=== PATIENT | male | born 1960 | race Caucasian/White ===

== ENCOUNTER 2017-02-15 09:16 | Emergency (ER) | payer SELFPAY ==
[~2017-02-15] VITALS: Ht 177.8 cm; Wt 78.0 kg
[~2017-02-15 09:16] MED LIST: ASPI-516 CHEW; AUGM500T7 PO; CARD120T4 PO; FURO1TAB62 PO; HYDR-3535 PO; METO50TA PO; NIFE1TAB86 PO; PRIN20TA2 PO
[2017-02-15 09:20] VITALS: BP 173/88; PULSE 83; RESP 20; TEMP 97.6; O2SAT 95
[2017-02-15] MEDS ORDERED: HYDR-3583 PO (09:33)
--- NOTE | 2017-02-15 09:49 | PD ---
HPI Chief Complaint: Headache Time Seen by Provider: 09:43 Travel History International Travel<30 days: No Contact w/Intl Traveler<30days: No Traveled to known affect area: No History of Present Illness HPI 56-year-old male patient with history of A. fib, hypertension, presents to the ER today for 2 days history of cough, cold symptoms, body aches, fevers and chills, and states that his A. fib has worsened, he is having intermittent palpitations. He denies any diarrhea, abdominal pains, chest pains, shortness of breath, or other symptoms. He does not know any sick contacts. Modifying Factors: None Associated Signs & Symptoms: Palpitations, cough, cold symptoms, body aches, fevers and chills Risk Factors: History of A. fib PFSH Past Medical History Arthritis: Yes Asthma: No Atrial Fibrillation: Yes Autoimmune Disease: No Blood Disorders: No Anxiety: No Depression: No Heart Rhythm Problems: Yes Cancer: Yes (SKIN) Cardiovascular Problems: Yes (A FIB) High Cholesterol: No Chemotherapy: No Chest Pain: No Congestive Heart Failure: No COPD: No Cerebrovascular Accident: No Diabetes: No Diminished Hearing: No Endocrine: No Gastrointestinal Disorders: No GERD: No Genitourinary: No Headaches: No Hiatal Hernia: No Hypertension: Yes Immune Disorder: No Implanted Vascular Access Dvce: Yes Kidney Stones: No Musculoskeletal: Yes (BACK) Neurologic: Yes (PAIN MANAGEMENT IN THE PAST FOR BACK PROBLEMS) Psychiatric: No Reproductive: No Immunizations Current: Yes Migraines: No Radiation Therapy: No Renal Failure: No Seizures: No Sickle Cell Disease: No Sleep Apnea: No Thyroid Disease: No Ulcer: No Tetanus Vaccination: < 5 Years Influenza Vaccination: No Past Surgical History Abdominal Surgery: Yes (UMBILICAL HERNIA) AICD: No Arteriovenous Shunt: No Body Medical Devices: PINS ON LEFT ANKLE AND LEFT & RIGHT HAND. Cardiac Surgery: No Ear Surgery: No Endocrine Surgery: No Eye Surgery: No Genitourinary Surgery: No Gynecologic Surgery: No Insulin Pump: No Joint Replacement: No Oral Surgery: No Pacemaker: No Thoracic Surgery: No Other Surgery: Yes (LEFT LEG AND ANKLE SURGERY) Social History Alcohol Use: Yes (rarely) Tobacco Use: Yes (1 PPD) Substance Use: No Allergies-Medications (Allergen,Severity, Reaction): Coded Allergies: *MDRO Multi-Drug Resistant Organism (Verified Adverse Reaction, Unknown, 02/15/17) MRSA (leg and arm wound) - 2003 MRSA PCR screen negative 02/26/15 & 05/08/15. Per Infection Control, patient does not require isolation for history of MRSA prior to 05/08/15. Reported Meds & Prescriptions Reported Meds & Active Scripts Active Reported Hydrocodone-Acetaminophen 10-325 mg Tab 1 Tab PO Q4H PRN Prinivil (Lisinopril) 20 Mg Tab 20 Mg PO DAILY Lasix (Furosemide) 20 Mg Tab 20 Mg PO DAILY Aspirin 81 Mg Chew 81 Mg CHEW DAILY Metoprolol Tartrate 50 Mg Tab 50 Mg PO BID Review of Systems Except as stated in HPI: all other systems reviewed are Neg Physical Exam Narrative GENERAL: Well-developed middle age male patient currently in mild distress. Awake and oriented 3. SKIN: Focused skin assessment warm/dry. HEAD: Atraumatic. Normocephalic. EYES: Pupils equal and round. No scleral icterus. No injection or drainage. ENT: No nasal bleeding or discharge. Mucous membranes pink and moist. NECK: Trachea midline. No JVD. CARDIOVASCULAR: Regular rate and rhythm. No murmur appreciated. RESPIRATORY: No accessory muscle use. Clear to auscultation. Breath sounds equal bilaterally. GASTROINTESTINAL: Abdomen soft, non-tender, nondistended. Hepatic and splenic margins not palpable. MUSCULOSKELETAL: No obvious deformities. No clubbing. No cyanosis. No edema. NEUROLOGICAL: Awake and alert. No obvious cranial nerve deficits. Motor grossly within normal limits. Normal speech. PSYCHIATRIC: Appropriate mood and affect; insight and judgment normal. Data Data Last Documented VS Vital Signs Date Time Temp Pulse Resp B/P (MAP) Pulse Ox O2 Delivery O2 Flow Rate FiO2 02/15/17 10:37 81 17 152/78 (102) 93 Room Air 02/15/17 09:20 97.6 Orders Orders Complete Blood Count With Diff (02/15/17 09:43) Comprehensive Metabolic Panel (02/15/17 09:43) Troponin I (02/15/17 09:43) Influenzae A/B Antigen (02/15/17 09:43) Chest, Single Ap (02/15/17 09:43) B-Type Natriuretic Peptide (02/15/17 10:06) Ibuprofen (Motrin) (02/15/17 10:30) Labs Laboratory Tests Test 02/15/17 09:53 White Blood Count 16.7 TH/MM3 Red Blood Count 5.16 MIL/MM3 Hemoglobin 15.2 GM/DL Hematocrit 45.6 % Mean Corpuscular Volume 88.3 FL Mean Corpuscular Hemoglobin 29.4 PG Mean Corpuscular Hemoglobin Concent 33.3 % Red Cell Distribution Width 13.7 % Platelet Count 182 TH/MM3 Mean Platelet Volume 8.1 FL Neutrophils (%) (Auto) 90.1 % Lymphocytes (%) (Auto) 4.2 % Monocytes (%) (Auto) 3.7 % Eosinophils (%) (Auto) 0.6 % Basophils (%) (Auto) 1.4 % Neutrophils # (Auto) 15.1 TH/MM3 Lymphocytes # (Auto) 0.7 TH/MM3 Monocytes # (Auto) 0.6 TH/MM3 Eosinophils # (Auto) 0.1 TH/MM3 Basophils # (Auto) 0.2 TH/MM3 CBC Comment DIFF FINAL Differential Comment B-Type Natriuretic Peptide 62 PG/ML MDM Medical Decision Making Medical Screen Exam Complete: Yes Emergency Medical Condition: Yes Medical Record Reviewed: Yes Interpretation(s) EKG shows normal sinus rhythm at a rate of 79 bpm with occasional PAC. No signs of acute ST-T changes. Last 24 hours Impressions Chest X-Ray 02/15/17 0943 Signed Impressions: Service Date/Time: Wednesday, February 15, 2017 09:48 - CONCLUSION: Mild congestive failure.. Martinez Márquez MD FACR Differential Diagnosis Palpitations, cough, cold symptoms, body aches, fevers and chills: Viral URI versus influenza versus dehydration versus bronchitis versus metabolic issues Narrative Course Influenza test is negative. Chest x-ray shows some interstitial pneumonitis, questionable pulmonary edema versus viral pneumonitis versus bronchitis. BNP is unremarkable. He does have an elevated white blood cell counts. At this point, he appears to be doing well and vital signs are stable. However, I do not have his metabolic panel back yet and the patient is requesting to go home due to the holidays. I have talked to the patient regarding the fact that we do not know his electrolyte status or other information contained in the metabolic panel and this could affect his care. He states understanding but does not want to stay. He states he will follow-up with his physician regarding this issue. He should return for any worsening in symptoms. My plan would be to treat him for bronchitis. The plan was discussed with him and the risk of possible lab work abnormalities that could affect his health has been discussed with him and he states understanding. He still does not want to stay to get the rest of lab work. Diagnosis Primary Impression: Bronchitis Med/Other Pt SpecificInfo: Prescription(s) given Scripts Albuterol 6.7 GM Inh (Proventil Hfa 6.7 GM Inh) 90 Mcg/Act Aer 2 PUFF INH Q6H Y for SHORTNESS OF BREATH, #1 INHALER 0 Refills Prov: Aleksandr Mann MD 02/15/17 Ibuprofen (Ibuprofen) 600 Mg Tab 600 MG PO Q6H Y for Pain/Inflammation, #20 TAB 0 Refills Prov: Aleksandr Mann MD 02/15/17 Azithromycin (Zithromax Z-[place]) 250 Mg Dspk 250 MG PO DIRECTED for Infection, #1 DSPK 0 Refills 500 MG (2 tabs) day 1, then 1 tab days 2-5. Prov: Aleksandr Mann MD 02/15/17 Disposition: 01 DISCHARGE HOME Condition: Stable Aleksandr Mann MD Feb 15, 2017 09:49
[2017-02-15 10:02] LABS: AUTOMATED NEUTROPHIL # 15.1 TH/MM3 (1.8-7.7); BASOPHIL # 0.2 TH/MM3 (0-0.2); BASOPHIL % 1.4 % (0.0-2.0); EOSINOPHIL # 0.1 TH/MM3 (0-0.4); EOSINOPHIL % 0.6 % (0.0-4.0); HEMATOCRIT 45.6 % (39.0-51.0); HEMOGLOBIN 15.2 GM/DL (13.0-17.0); LYMPH % 4.2 % (9.0-44.0); LYMPHOCYTE # 0.7 TH/MM3 (1.0-4.8); MEAN CELL VOLUME 88.3 FL (80.0-100.0); MEAN CORPUSCULAR HEMOGLOBIN 29.4 PG (27.0-34.0); MEAN CORPUSCULAR HGB CONC 33.3 % (32.0-36.0); MEAN PLATELET VOLUME 8.1 FL (7.0-11.0); MONO % 3.7 % (0.0-8.0); MONOCYTE # 0.6 TH/MM3 (0-0.9); NEUT % 90.1 % (16.0-70.0); PLATELET COUNT 182 TH/MM3 (150-450); RED BLOOD COUNT 5.16 MIL/MM3 (4.50-5.90); RED CELL DISTRIBUTION WIDTH 13.7 % (11.6-17.2); WHITE BLOOD COUNT 16.7 TH/MM3 (4.0-11.0)
--- NOTE | 2017-02-15 10:05 | RADRPT ---
EXAM DATE/TIME: 02/15/2017 09:48 [facility] COMPARISON: CHEST SINGLE AP, January 01, 2016, 0:24. INDICATIONS : Short of breath. Tachycardia. MEDICAL HISTORY : Hypertension. A-fib. SURGICAL HISTORY : None. ENCOUNTER: Initial ACUITY: 2 days PAIN SCORE: 0/10 LOCATION: Bilateral chest FINDINGS: Mild interstitial edema without effusion or consolidation. The heart is minimally enlarged. The portion of the bony skeleton visualized is unremarkable. CONCLUSION: Mild congestive failure.. Martinez Márquez MD FACR on February 15, 2017 at 10:02 Board Certified Radiologist. This report was verified electronically.
[2017-02-15] MEDS ORDERED: IBUPROFEN 600 MG TAB PO ONE (10:30)
[2017-02-15 10:37] VITALS: BP 152/78; PULSE 81; RESP 17; O2SAT 93
[2017-02-15 11:03] LABS: CHLORIDE 102 MEQ/L (98-107); SODIUM (NA) 135 MEQ/L (136-145)
[2017-02-15] MEDS ORDERED: ALBU6.7H INH (11:04)
[2017-02-15] MEDS ORDERED: ZITHTAB PO (11:04)
[2017-02-15] MEDS ORDERED: IBUP-232 PO (11:04)
[2017-02-15 11:06] LABS: CALCIUM 8.4 MG/DL (8.5-10.1)
[2017-02-15 11:07] LABS: ALBUMIN 3.1 GM/DL (3.4-5.0); BICARBONATE 24.5 MEQ/L (21.0-32.0); BLOOD UREA NITROGEN 24 MG/DL (7-18); GLUCOSE,RANDOM 113 MG/DL (74-106)
[2017-02-15 11:10] LABS: ALT (GPT) 19 U/L (12-78); AST (GOT) 22 U/L (15-37); CREATININE 0.98 MG/DL (0.60-1.30); GLOMERULAR FILTRATION RATE 79 ML/MIN (>89)
[2017-02-15 11:11] LABS: TOTAL BILIRUBIN ADULT 0.5 MG/DL (0.2-1.0)
[2017-02-15 11:12] LABS: TOTAL PROTEIN 7.4 GM/DL (6.4-8.2)
[2017-02-15 11:13] LABS: ALKALINE PHOSPHATASE 101 U/L (45-117); TROPONIN I LESS THAN 0.02 NG/ML (0.02-0.05)
--- NOTE | 2017-02-16 17:22 | EKG ---
Date Performed: 02/15/2017 Time Performed: 09:29:55 PTAGE: 56 years EKG: Sinus rhythm WITH SINUS ARRHYTHMIA Since previous tracing, no significant change noted NORMAL ECG PREVIOUS TRACING : 12/29/2015 11.23 DOCTOR: Vita Wren Interpretating Date/Time 02/16/2017 17:20:33
== END 2017-02-15 11:13 | disposition home or self-care (01) ==
LOC: PHED 09:16
DX: J40 Bronchitis, not specified as acute or chronic (principal); I10 Essential (primary) hypertension; I48.91 Unspecified atrial fibrillation
CPT/HCPCS: 71010; 80053; 83880; 84484; 85025; 87804; 93005; 99285

== ENCOUNTER 2017-07-03 19:53 | Observation (INO) | END 2017-07-06 12:51 | disposition home or self-care (01) | DX: L02.413 Cutaneous abscess of right upper limb (principal); L03.113 Cellulitis of right upper limb; I10 Essential (primary) hypertension; I48.91 Unspecified atrial fibrillation; I25.2 Old myocardial infarction; M54.9 Dorsalgia, unspecified; G89.29 Other chronic pain; M19.90 Unspecified osteoarthritis, unspecified site; F17.210 Nicotine dependence, cigarettes, uncomplicated; F12.90 Cannabis use, unspecified, uncomplicated; Z79.899 Other long term (current) drug therapy; Z79.82 Long term (current) use of aspirin; Z95.5 Presence of coronary angioplasty implant and graft; Z85.828 Personal history of other malignant neoplasm of skin; Z82.49 Family history of ischemic heart disease and other diseases of the circulatory system; Z86.14 Personal history of Methicillin resistant Staphylococcus aureus infection | CPT/HCPCS: 01710; 11043; 76882; 80053; 80202; 80307; 81001; 85025; 85610; 85730; 87015; 87040; 87070; 87102; 87116; 87176; 87205; 87206; 94150; 96361; 96365; 96366; 96375; 96376; 97161; 97166; 99285; G0378; G8987; G8988; G8989; J0131; J0692; J1100; J1170; J1580; J2250; J2270; J2405; J3010; J3370; J7030; J7040; J7050 ==

== ENCOUNTER 2017-09-18 03:19 | Observation (INO) ==
--- NOTE | 2017-09-18 03:37 | ED ---
HPI General Chief Complaint: Back Pain/Injury Stated Complaint: Backpain Time Seen by Provider: 09/18/17 03:24 History of Present Illness HPI Narrative: 56-year-old male presents to the emergency department by EMS transport for severe intractable back pain radiating to the right buttock region. 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 Patient has significant past medical history regarding back injury and back pain. Patient required hospitalization 2 years ago for intractable back pain which time he was identified to have a focal lumbar epidural abscess that was treated medically without procedural intervention. Patient was also identified during that hospitalization to have new onset atrial fibrillation and was respiratory failure. Patient has been seen for this pain as recently as yesterday in the emergency department at which time he was transported to the emergency department by EMS for severe pain. Patient was treated with morphine sulfate 4 mg Zofran 4 mg by mouth 30 mg of Toradol he continued to have pain and received dexamethasone 8 mg IV Norflex 60 mg IM and oral [place] 5/ 325. Patient was also queried on E force and had not had any prescriptions for pain management since December 2016 at which time he was prescribed Suboxone. Patient was discharged from the emergency department with lumbar strain diagnosis and prescription for Flexeril [place] 5/325 and prednisone. Patient reports that he has not been able to ambulate or get out of bed due to the severity of his pain which is greater than 10/10 in intensity. Paramedics reported they administered 10 mg of morphine sulfate in route to the hospital. Patient was transported on stretcher in position of comfort which was left lateral decubitus position. Patient does not report any bladder or bowel dysfunction or saddle anesthesia. Patient has severe pain with any type of attempted movement of the right lower extremity or change position from left lateral decubitus position. Patient was reportedly markedly hypertensive prior to administration of more patient does have history of hypertension and previous inguinal herniorrhaphy repair. Patient admits to tobacco use and occasional alcohol use. A CT of the lumbar spine was performed last evening which reported some mild disc bulge without significant effacement at L5-S1. Chronic L1 changes. Exacerbation of pain is any type of movement. Alleviation of pain nothing at this time only minimally affected by morphine sulfate administered IV prior to arrival to the emergency department reportedly. Related Data Home Medications Medication Instructions Recorded Confirmed lisinopril 20 mg PO DAILY 09/16/17 09/18/17 metoprolol tartrate 10 mg PO DAILY 09/16/17 09/18/17 Previous Rx's Medication Instructions Recorded cyclobenzaprine 10 mg PO TID PRN #21 tab 09/16/17 hydrocodone-acetaminophen [[place]] 1 tab PO Q6H PRN #12 tab 09/16/17 prednisone 40 mg PO DAILY 5 Days #10 tab 09/16/17 Allergies Allergy/AdvReac Type Severity Reaction Status Date / Time *MDRO Multi-Drug Resistant AdvReac Unknown Uncoded 07/03/17 19:55 Organism Review of Systems Except as stated in HPI: all other systems reviewed are negative [facility] Medical History Medical History Hypertension (Acute) Inguinal hernia (Acute) Surgical History Surgical History S/P hernia repair (Acute) Social History Social History Substance History: No History of Abuse Second Hand Smoke Exposure: No Smoking Status: Light tobacco smoker Tobacco Type: Cigarettes How Often Do You Have a Drink Containing Alcohol: 2 to 3 times a week Recent Travel in [facility] within the Last 8 Weeks: No Recent Out of Country Travel within the Last 8 Weeks: No Immunization History Tetanus Immunization: >5 Years Hx Influenza Vaccine This Season: No Exam Narrative Exam Narrative: GENERAL: Well-nourished, well-developed patient. Patient is in acute discomfort resting and left lateral decubitus position and moans and yells in pain with any type of movement; GCS is 15 SKIN: Focused skin assessment warm/dry. HEAD: Normocephalic. EYES: No scleral icterus. No injection or drainage. NECK: Supple, trachea midline. No JVD or lymphadenopathy. CARDIOVASCULAR: Regular rate and rhythm without murmurs, gallops, or rubs. RESPIRATORY: Breath sounds equal bilaterally. No accessory muscle use. GASTROINTESTINAL: Abdomen soft, non-tender, nondistended. MUSCULOSKELETAL: No cyanosis, or edema. BACK: Nontender without obvious deformity except reproducible tenderness to the lower lumbar spine referring to the right SI joint and buttock distally extremity is neurovascular tendon intact with dorsalis pedis pulse 2+ to palpation brisk capillary refill less than 2 seconds. No CVA tenderness. Course Initial Documented Vital Signs Temperature 98.9 F 09/18/17 03:21 Pulse Rate 87 09/18/17 03:21 Respiratory Rate 17 09/18/17 03:21 Blood Pressure 162/81 H 09/18/17 03:21 Pulse Oximetry 96 09/18/17 03:21 Last Documented Vital Signs Temperature 98.8 F 09/18/17 16:00 Pulse Rate 98 H 09/18/17 16:00 Respiratory Rate 18 09/18/17 17:10 Blood Pressure 200/90 H 09/18/17 16:00 Pulse Oximetry 98 09/18/17 16:00 Medical Decision Making MDM Narrative Medical decision making narrative: 56-year-old male presents to the emergency department by EMS complaining of intractable back pain. Pain is right-sided and radiates to the right SI joint and right hip. Patient states pain is so severe it is intolerable. Patient came to the emergency room via EMS and pain was still intolerable 10/10 intensity 9.5/10 intensity after 10 mg of IV morphine. Patient upon arrival placed in position of comfort to left lateral decubitus position patient does have reproducible low back pain and SI joint pain but does not have any motor weakness or sensory deficit and DTRs are 2+ without clonus dorsalis pedis pulses 2+ to palpation capillary refill is brisk and less than 2 seconds sphincter tone is intact. Patient given additional dose of pain medication Dilaudid 1 mg IV along with Reglan 10 mg IV and maintenance IV fluids patient was just seen in the emergency department yesterday 09/16/17 with extensive workup including blood work and imaging study which revealed no significant disc space impingement and has had no reinjury since original injury 3 days ago while lifting an anchor on his boat. At this point time patient will be reassessed from lab values standpoint and may need to proceed with lumbar MRI to further delineate ongoing etiology of pain. Patient also given dose of Toradol 30 mg IV. At 4:50 AM patient is standing at bedside urinating to provide urine specimen; patient reports this is position of comfort because lying down or lying in left lateral decubitus position or sitting exacerbates his pain. MR shows inflammatory cahnges L3 -S1 no abscess --ain remains uncontrolled --- discussed with Dr Conrad for intractable lumbar pain Medical Records Medical records reviewed: Yes I reviewed the patient's medical records. Lab Data Result diagrams: 09/18/17 04:47 09/18/17 04:47 Lab Results 09/18/17 09/18/17 09/18/17 Range/Units 04:47 04:47 04:47 WBC 17.3 H (4.0-11.0) th/mm3 RBC 4.33 L (4.50-5.90) mil/mm3 Hgb 13.7 (13.0-17.0) gm/dL Hct 40.1 (39.0-51.0) % MCV 92.6 (80.0-100.0) fL MCH 31.7 (27.0-34.0) pg MCHC 34.2 (32.0-36.0) % RDW 12.9 (11.6-17.2) % Plt Count 176 (150-450) th/mm3 MPV 8.5 (7.0-11.0) fL Neut % (Auto) 80.3 H (16.0-70.0) % Lymph % (Auto) 10.3 (9.0-44.0) % Cotton % (Auto) 8.4 H (0.0-8.0) % Eos % (Auto) 0.7 (0.0-4.0) % Baso % (Auto) 0.3 (0.0-2.0) % Neut # (Auto) 13.9 H (1.8-7.7) th/mm3 Lymph # (Auto) 1.8 (1.0-4.8) th/mm3 Cotton # (Auto) 1.4 H (0.0-0.9) th/mm3 Eos # (Auto) 0.1 (0.0-0.4) th/mm3 Baso # (Auto) 0.1 (0.0-0.2) th/mm3 WBC Differential . Differential Comment Auto diff final ESR 49 H (0-20) mm/hr PT (9.8-11.6) sec INR Ratio APTT (24.3-30.1) sec Sodium 138 (136-145) meq/L Potassium 4.0 (3.5-5.1) meq/L Chloride 103 (98-107) meq/L Carbon Dioxide 27.0 (21.0-32.0) meq/L Anion Gap 8 (5-15) meq/L BUN 36 H (7-18) mg/dL Creatinine 1.12 (0.60-1.30) mg/dL Estimated GFR 67 L (>89) mL/min Random Glucose 107 H (74-106) mg/dL Lactic Acid (0.4-2.0) mmol/L Calcium 8.2 L (8.5-10.1) mg/dL C-Reactive Protein (0.00-0.30) mg/dL 09/18/17 09/18/17 09/18/17 Range/Units 07:30 10:14 14:53 WBC (4.0-11.0) th/mm3 RBC (4.50-5.90) mil/mm3 Hgb (13.0-17.0) gm/dL Hct (39.0-51.0) % MCV (80.0-100.0) fL MCH (27.0-34.0) pg MCHC (32.0-36.0) % RDW (11.6-17.2) % Plt Count (150-450) th/mm3 MPV (7.0-11.0) fL Neut % (Auto) (16.0-70.0) % Lymph % (Auto) (9.0-44.0) % Cotton % (Auto) (0.0-8.0) % Eos % (Auto) (0.0-4.0) % Baso % (Auto) (0.0-2.0) % Neut # (Auto) (1.8-7.7) th/mm3 Lymph # (Auto) (1.0-4.8) th/mm3 Cotton # (Auto) (0.0-0.9) th/mm3 Eos # (Auto) (0.0-0.4) th/mm3 Baso # (Auto) (0.0-0.2) th/mm3 WBC Differential Differential Comment ESR 67 H (0-20) mm/hr PT 11.1 (9.8-11.6) sec INR 1.1 Ratio APTT 28.9 (24.3-30.1) sec Sodium (136-145) meq/L Potassium (3.5-5.1) meq/L Chloride (98-107) meq/L Carbon Dioxide (21.0-32.0) meq/L Anion Gap (5-15) meq/L BUN (7-18) mg/dL Creatinine (0.60-1.30) mg/dL Estimated GFR (>89) mL/min Random Glucose (74-106) mg/dL Lactic Acid 0.9 (0.4-2.0) mmol/L Calcium (8.5-10.1) mg/dL C-Reactive Protein (0.00-0.30) mg/dL 09/18/17 Range/Units 14:53 WBC (4.0-11.0) th/mm3 RBC (4.50-5.90) mil/mm3 Hgb (13.0-17.0) gm/dL Hct (39.0-51.0) % MCV (80.0-100.0) fL MCH (27.0-34.0) pg MCHC (32.0-36.0) % RDW (11.6-17.2) % Plt Count (150-450) th/mm3 MPV (7.0-11.0) fL Neut % (Auto) (16.0-70.0) % Lymph % (Auto) (9.0-44.0) % Cotton % (Auto) (0.0-8.0) % Eos % (Auto) (0.0-4.0) % Baso % (Auto) (0.0-2.0) % Neut # (Auto) (1.8-7.7) th/mm3 Lymph # (Auto) (1.0-4.8) th/mm3 Cotton # (Auto) (0.0-0.9) th/mm3 Eos # (Auto) (0.0-0.4) th/mm3 Baso # (Auto) (0.0-0.2) th/mm3 WBC Differential Differential Comment ESR (0-20) mm/hr PT (9.8-11.6) sec INR Ratio APTT (24.3-30.1) sec Sodium (136-145) meq/L Potassium (3.5-5.1) meq/L Chloride (98-107) meq/L Carbon Dioxide (21.0-32.0) meq/L Anion Gap (5-15) meq/L BUN (7-18) mg/dL Creatinine (0.60-1.30) mg/dL Estimated GFR (>89) mL/min Random Glucose (74-106) mg/dL Lactic Acid (0.4-2.0) mmol/L Calcium (8.5-10.1) mg/dL C-Reactive Protein 11.00 H (0.00-0.30) mg/dL Imaging Data Radiologist's impression: Lumbar Spine MRI 09/18/17 05:12 CONCLUSION: 1. No evidence for epidural abscess. 2. Resolution of previously seen abnormal marrow edema of L5-S1 on the left side an epidural abscess at that site since the prior exam. There is mild edema involving the superior articular process of L5 on the left side could be due to degenerative change. 3. Slight nondescript soft tissue edema on the right posteriorly L3-S1 not present on the prior exam possibly traumatic related to spasm or inflammatory change without focal pocket of abscess. Discharge Plan Discharge Disposition Patient Disposition: 30 Still Patient Discharge Condition Condition: Stable Discharge Details Diagnosis: Lumbar radiculopathy, Intractable back pain Physicians Team ED Provider: Sasha Moody Primary Care Provider: Primary Care Yahaira Chris Attending Provider: Gerardo Conrad Other Providers: Darnell Crawford ; Alia Rangel Discharge Interventions Interventions: ED Discharge Assessment Last Done: 09/18/17 10:54 Vital Signs Last Done: 09/18/17 07:26 Status ED Status: Left Department Discharge Information Discharge Date/Time: 09/18/17 11:05
[2017-09-18] MEDS ORDERED: HYDROmorphone PF Inj 2 MG/ML Vial IV.PUSH ONE ×6 (03:58→23:48)
[2017-09-18] MEDS ORDERED: Ketorolac Inj 30 MG/ML (IVP) Vial IV.PUSH ONE ×2 (04:00→16:30)
[2017-09-18] MEDS: Sod Chloride 0.9% Inj 1,000 ML IV.CONT SCH ×2 (04:34→18:43)
[2017-09-18 04:58] LABS: Baso # (Auto) 0.1 th/mm3 (0.0-0.2); Baso % (Auto) 0.3 % (0.0-2.0); Eos # (Auto) 0.1 th/mm3 (0.0-0.4); Eos % (Auto) 0.7 % (0.0-4.0); Hematocrit 40.1 % (39.0-51.0); Hemoglobin 13.7 gm/dL (13.0-17.0); Lymph # (Auto) 1.8 th/mm3 (1.0-4.8); Lymph % (Auto) 10.3 % (9.0-44.0); Mean Corpuscular HGB Conc 34.2 % (32.0-36.0); Mean Corpuscular Hemoglobin 31.7 pg (27.0-34.0); Mean Corpuscular Volume 92.6 fL (80.0-100.0); Mean Platelet Volume 8.5 fL (7.0-11.0); Mono # (Auto) 1.4 th/mm3 (0.0-0.9); Mono % (Auto) 8.4 % (0.0-8.0); Neut # (Auto) 13.9 th/mm3 (1.8-7.7); Neut % (Auto) 80.3 % (16.0-70.0); Platelet Count 176 th/mm3 (150-450); Red Blood Count 4.33 mil/mm3 (4.50-5.90); Red Cell Distribution Width 12.9 % (11.6-17.2); White Blood Count 17.3 th/mm3 (4.0-11.0)
[2017-09-18] MEDS ORDERED: Sod Chloride 0.9% Inj 1,000 ML IV.SIG ONE (05:12)
[2017-09-18 05:32] LABS: Calcium 8.2 mg/dL (8.5-10.1)
[2017-09-18] MEDS ORDERED: Gadobenate Dimeglumine PF Inj 20 ML VIAL (for RAD MRI) IVCONTRAST ONE (06:57)
--- NOTE | 2017-09-18 07:17 | MR ---
EXAM DATE: 09/18/2017 7:06 AM EDT AGE/SEX: 56 years / Male INDICATIONS: Abscess. Low back pain for four days. CLINICAL DATA: This is the patient's initial encounter. Patient reports that signs and symptoms have been present for 4 - 6 days and indicates a pain score of 10/10. MEDICAL/SURGICAL HISTORY: Hypertension. Prior lumber abscess. Umbilical hernia repair. COMPARISON: [facility] [place], MRI LUMBAR SPINE W & W/O CONTRAST, 05/27/2015. . TECHNIQUE: Multiplanar, multisequence MRI examination of the lumbar spine was performed without and with 20 ml Multihance (gadobenate) contrast as a single exam dose. FINDINGS: The most caudal-appearing lumbar vertebra is numbered as L5. The marrow signal appears intact except for mild probable degenerative edema involving the superior articular process and lamina of L5 on the left side and the previously seen abnormal marrow edema involving L5 and S1 on the left side has res olved. There is no evidence of epidural abscess and previously seen epidural abscess at the level of L5-S1 as resolved. No significant spondylolisis, or spondylolesthesis is seen. There is mild anterio r wedging of L1 chronic in nature and not changed. There is mild nondescript soft tissue edema toward s the right side from L3 to S1 not present on the prior examination within the soft tissues posterior ly. The appearance is nonspecific may be traumatic or possibly inflammatory process. There are shotty retroperitoneal lymph nodes not significantly changed. L1-L2: No appreciable compromise to the thecal sac, or the exiting nerve roots is seen. The neural foramina and lateral recesses are patent bilaterally. L2-L3: No appreciable compromise to the thecal sac, or the exiting nerve roots is seen. The neural foramina and lateral recesses are patent bilaterally. L3-L4: No appreciable compromise to the thecal sac, or the exiting nerve roots is seen. The neural foramina and lateral recesses are patent bilaterally. L4-L5: No appreciable compromise to the thecal sac, or the exiting nerve roots is seen. The neural foramina and lateral recesses are patent bilaterally. L5-S1: There is slight neural foramina compromise on the left due to asymmetrical bulging disc and h ypertrophic changes. Slight degenerative changes are present in the disc space and facets. Slight bu lging disc and hypertrophic changes are seen with indentation on the thecal sac and no significant co mpromise to the thecal sac. CONCLUSION: 1. No evidence for epidural abscess. 2. Resolution of previously seen abnormal marrow edema of L5-S1 on the left side an epidural abscess at that site since the prior exam. There is mild edema involving the superior articular process of L 5 on the left side could be due to degenerative change. 3. Slight nondescript soft tissue edema on the right posteriorly L3-S1 not present on the prior exam possibly traumatic related to spasm or inflammatory change without focal pocket of abscess. Electronically signed by: Johan Burnett MD 09/18/2017 7:16 AM EDT
[2017-09-18] MEDS ORDERED: Naloxone Inj 0.4 MG/ML Vial IV.PUSH PRN (07:57)
[2017-09-18] MEDS ORDERED: Bisacodyl 10 MG Supp RECTAL PRN (08:00)
[2017-09-18] MEDS: oxyCODONE/Acetaminophen 10/325 Tablet PO PRN ×3 (08:13→20:42)
[2017-09-18] MEDS: Senna/Docusate Sodium 8.6/50 MG Tablet PO SCH ×2 (08:14→20:41)
--- NOTE | 2017-09-18 09:19 | P.HPIM ---
History of Present Illness Primary Care Physician: No Primary Care Physician History of Present Illness: 56-year-old male with a history of spinal abscess, staph bacteremia who presents with 3 day history of constant, sharp, nonradiating low back pain worsened by movement. Patient denies any injuries. Denies IV drug use. He says he feels like fevers have started today. He reports the pain is so severe he cannot lie down, and history is limited by what appears to be extreme pain. 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 - Medical History Medical History: Medical History (Last Updated 09/18/17 @ 09:10 by Gerardo Conrad MD) Arm abscess Atrial fibrillation Chronic back pain Spinal abscess Hypertension Inguinal hernia - Surgical History Surgical History: Surgical History (Last Updated 09/18/17 @ 09:10 by Gerardo Conrad MD) H/O ventral hernia repair S/P hernia repair - Family History Family History: Family History (Last Updated 09/18/17 @ 09:12 by Gerardo Conrad MD) Father Heart disease - Tobacco History Second Hand Smoke Exposure: No Tobacco Use In Past 30 Days: Yes Smoking Status: Light tobacco smoker Tobacco Type: Cigarettes - Alcohol History How Often Do You Have a Drink Containing Alcohol: 2 to 3 times a week - Substance Use History Substance History: No History of Abuse - Travel History Recent Travel in the [place] Within the Last 8 Weeks: No Recent Travel Out of the Country Within the Last 8 Weeks: No - Immunization History Tetanus Immunization: >5 Years Hx Influenza Vaccine This Season: No Medications and Allergies Active Medications: Active Medications Al Hydroxide/Mg Hydroxide (Milk Of Magnesia Liq) 30 ml PO Q12H PRN PRN Reason: Mild Constipation Bisacodyl (Dulcolax Supp) 10 mg RECTAL DAILY PRN PRN Reason: SEVERE CONSITIPATION Sodium Chloride (Ns Inj) 1,000 mls @ 125 mls/hr IV.CONT .Q8H [facility] Last Admin: 09/18/17 04:34 Dose: 125 mls/hr Lactulose (Lactulose Liq) 30 ml PO DAILY PRN PRN Reason: SEVERE CONSITIPATION Naloxone HCl (Narcan Inj) 0.4 mg IV.PUSH UNSCH PRN PRN Reason: SEE LABEL COMMENTS Oxycodone/Acetaminophen (Percocet 5/325 Mg) 1 tab PO Q6H PRN PRN Reason: PAIN SCALE 3 TO 5 Oxycodone/Acetaminophen (Percocet 10/325 Mg) 1 tab PO Q6H PRN PRN Reason: PAIN SCALE 6 TO 10 Last Admin: 09/18/17 08:13 Dose: 1 tab Senna/Docusate Sodium (Kristin-Colace) 1 tab PO BID CHAN Last Admin: 09/18/17 08:14 Dose: Not Given Sennosides (Senokot) 17.2 mg PO Q12H PRN PRN Reason: Moderate Constipation Allergies Allergy/AdvReac Type Severity Reaction Status Date / Time *MDRO Multi-Drug Resistant AdvReac Unknown Uncoded 07/03/17 19:55 Organism Home Medications Medication Instructions Recorded Confirmed Type lisinopril 40 mg PO BID 09/16/17 09/18/17 History metoprolol tartrate 25 mg PO DAILY 09/16/17 09/18/17 History Exam Vital signs: Vital Signs 09/18/17 03:21 09/18/17 06:47 09/18/17 06:49 Temperature 98.9 F Pulse Rate 87 Respiratory Rate 17 20 20 Blood Pressure 162/81 H Pulse Oximetry 96 09/18/17 07:26 Temperature Pulse Rate 83 Respiratory Rate 16 Blood Pressure 173/90 H Pulse Oximetry 92 L Intake & Output 09/17/17 09/18/17 09/18/17 18:59 06:59 18:59 Weight 99.79 kg Narrative: GENERAL: In standing in room. Appears in extreme pain. SKIN: Warm and dry. HEAD: Atraumatic. Normocephalic. EYES: Pupils equal and round. No scleral icterus. No injection or drainage. ENT: No nasal bleeding or discharge. Mucous membranes pink and moist. NECK: Trachea midline. No JVD. CARDIOVASCULAR: Regular rate and rhythm. RESPIRATORY: No accessory muscle use. Clear to auscultation. Breath sounds equal bilaterally. GASTROINTESTINAL: Abdomen soft, non-tender, nondistended. Hepatic and splenic margins not palpable. MUSCULOSKELETAL: Extremities without clubbing, cyanosis, or edema. No obvious deformities. NEUROLOGICAL: Awake and alert. No obvious cranial nerve deficits. Motor grossly within normal limits. Five out of 5 muscle strength in the arms and legs. Normal speech. PSYCHIATRIC: Appropriate mood and affect; insight and judgment normal. Results - Labs CBC & Chem 7: 09/18/17 04:47 09/18/17 04:47 Labs: Short CBC 09/18/17 Range/Units 04:47 WBC 17.3 H (4.0-11.0) th/mm3 Hgb 13.7 (13.0-17.0) gm/dL Hct 40.1 (39.0-51.0) % Plt Count 176 (150-450) th/mm3 BMP 09/18/17 04:47 Sodium 138 Potassium 4.0 Chloride 103 Carbon Dioxide 27.0 BUN 36 H Creatinine 1.12 Calcium 8.2 L - Imaging Impressions Lumbar Spine MRI 09/18/17 05:12 CONCLUSION: 1. No evidence for epidural abscess. 2. Resolution of previously seen abnormal marrow edema of L5-S1 on the left side an epidural abscess at that site since the prior exam. There is mild edema involving the superior articular process of L5 on the left side could be due to degenerative change. 3. Slight nondescript soft tissue edema on the right posteriorly L3-S1 not present on the prior exam possibly traumatic related to spasm or inflammatory change without focal pocket of abscess. Caprini VTE Risk Assessment Caprini VTE Risk Assessment: No/Low Risk (score <= 1) Caprini Risk Assessment Model: Point Value = 1 Point Value = 2 Point Value = 3 Point Value = 5 Age 41-60 Minor surgery BMI > 25 kg/m2 Swollen legs Varicose veins or History of unexplained or recurrent spontaneous Oral contraceptives or hormone replacement Sepsis (< 1 month) Serious lung disease, including pneumonia (< 1 month) Abnormal pulmonary function Acute myocardial infarction Congestive heart failure (< 1 month) History of inflammatory bowel disease Medical patient at bed rest Age 61-74 Arthroscopic surgery Major open surgery (> 45 min) Laparoscopic surgery (> 45 min) Malignancy Confined to bed (> 72 hours) Immobilizing plaster cast Central venous access Age >= 75 History of VTE Family history of VTE Factor V Leiden Prothrombin [id number] Lupus anticoagulant Anticardiolipin antibodies Elevated serum homocysteine Heparin-induced thrombocytopenia Other congenital or acquired thrombophilia Stroke (< 1 month) Elective arthroplasty Hip, pelvis, or leg fracture Acute spinal cord injury (< 1 month) Prophylaxis Regimen: Total Risk Factor Score Risk Level Prophylaxis Regimen 0-1 Low Early ambulation 2 Moderate Order ONE of the following: *Sequential Compression Device (SCD) *Heparin 5000 units SQ BID 3-4 Higher Order ONE of the following medications: *Heparin 5000 units SQ TID *Enoxaparin/Lovenox 40 mg SQ daily (WT < 150 kg, CrCl > 30 mL/min) *Enoxaparin/Lovenox 30 mg SQ daily (WT < 150 kg, CrCl > 10-29 mL/min) *Enoxaparin/Lovenox 30 mg SQ BID (WT < 150 kg, CrCl > 30 mL/min) AND/OR *Sequential Compression Device (SCD) 5 or more Highest Order ONE of the following medications: *Heparin 5000 units SQ TID (Preferred with Epidurals) *Enoxaparin/Lovenox 40 mg SQ daily (WT < 150 kg, CrCl > 30 mL/min) *Enoxaparin/Lovenox 30 mg SQ daily (WT < 150 kg, CrCl > 10-29 mL/min) *Enoxaparin/Lovenox 30 mg SQ BID (WT < 150 kg, CrCl > 30 mL/min) AND *Sequential Compression Device (SCD) Assessment and Plan - Plan //Intractable low back pain //Failure of outpatient treatment = MRI spine with no evidence of epidural abscess. Resolution of previous marrow edema, however mild edema involving superior articular process of L5 on the left side, soft tissue edema L3-S1. = Order ESR = Pain control. Will consult neurosurgery //Leukocytosis. Likely secondary to steroids. No other SIRS criteria. Continue to monitor. //History of atrial fibrillation. Heart rate controlled. Continue metoprolol. Not on anticoagulation. //Tobacco abuse. Cessation counseling provided. //Hypertension. Blood pressure elevated likely secondary to pain. Continue home medications and monitor.
--- NOTE | 2017-09-18 10:09 | P.CONNS ---
History of Present Illness Service: neurosurgery Consult date: 09/18/17 Requesting Physician: Gerardo Conrad Reason for Consult: back pain Primary Care Provider: No Primary Care Physician Family Provider: back pain History of Present Illness: This is a 56-year-old male with a history of spinal abscess treated by another neurosurgeon, Dr Chaney in 2016, cultures showed staph infection, who presents with 3 day history of constant, sharp, nonradiating low back pain worsened by movement. He denies any trauma or injuries. Denies IV drug use. He says he feels like fevers have started today. He reports that his pain is so severe he cannot lie down, and history is limited by what appears to be extreme pain. Patient says he is convinced this is a return of his previous spinal infection. No focal weakness. No sensory loss. No incontinence of stool or urine. MRI of the lumbar spine showed resolution of his prior infection. Neurosurgical consultation was requested. Review of Systems All other systems reviewed negative except as stated in HPI Constitutional: Denies anorexia, Denies body ache(s), Denies chills, Denies daytime sleepiness, Denies excessive sweating, Denies fatigue, Denies fever(s), Denies headache(s), Denies increased appetite, Denies lack of energy, Denies malaise, Denies night sweats, Denies weakness, Denies weight gain, Denies weight loss, Denies other Eyes: Denies blind spots, Denies blurry vision, Denies bulging eyes, Denies change in vision, Denies double vision, Denies discharge, Denies dry eyes, Denies floaters, Denies irritation, Denies itchy eyes, Denies loss of vision, Denies pain, Denies requires corrective lenses, Denies sensitivity to light, Denies other Ears, Nose, Mouth, and Throat: Denies abnormal hearing, Denies bleeding gums, Denies bad breath, Denies change in voice, Denies dental pain, Denies difficulty swallowing, Denies dizziness, Denies dry mouth, Denies ear discharge , Denies ear pain, Denies facial pain, Denies headache(s), Denies hearing loss, Denies hoarseness, Denies lip swelling, Denies nosebleed, Denies mouth lesions, Denies mouth pain, Denies nasal congestion, Denies nasal discharge, Denies nasal obstruction, Denies nasal trauma, Denies neck lump, Denies neck pain, Denies nose pain, Denies pain with swallowing, Denies poor balance, Denies post nasal drip, Denies ringing in the ears, Denies sinus pain, Denies sinus pressure , Denies sore throat, Denies throat swelling, Denies tongue swelling, Denies other PMFSH - History History 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, 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 - Medical History Medical History: Medical History (Last Reviewed 09/18/17 @ 16:56 by Darnell Crawford MD) Arm abscess Atrial fibrillation Chronic back pain Spinal abscess Hypertension Inguinal hernia - Surgical History Surgical History: Surgical History (Last Reviewed 09/18/17 @ 16:56 by Darnell Crawford MD) H/O ventral hernia repair S/P hernia repair - Family History Family History: Family History (Last Reviewed 09/18/17 @ 16:56 by Darnell Crawford MD) Father Heart disease - Tobacco History Second Hand Smoke Exposure: No Tobacco Use In Past 30 Days: Yes Smoking Status: Light tobacco smoker Tobacco Type: Cigarettes - Alcohol History How Often Do You Have a Drink Containing Alcohol: 2 to 3 times a week - Substance Use History Substance History: No History of Abuse - Travel History Recent Travel in the [place] Within the Last 8 Weeks: No Recent Travel Out of the Country Within the Last 8 Weeks: No - Immunization History Tetanus Immunization: >5 Years Hx Influenza Vaccine This Season: No Medications and Allergies Active Medications: Active Medications Al Hydroxide/Mg Hydroxide (Milk Of Magnesia Liq) 30 ml PO Q12H PRN PRN Reason: Mild Constipation Bisacodyl (Dulcolax Supp) 10 mg RECTAL DAILY PRN PRN Reason: SEVERE CONSITIPATION Sodium Chloride (Ns Inj) 1,000 mls @ 125 mls/hr IV.CONT .Q8H CHAN Last Admin: 09/18/17 04:34 Dose: 125 mls/hr Lactulose (Lactulose Liq) 30 ml PO DAILY PRN PRN Reason: SEVERE CONSITIPATION Naloxone HCl (Narcan Inj) 0.4 mg IV.PUSH UNSCH PRN PRN Reason: SEE LABEL COMMENTS Oxycodone/Acetaminophen (Percocet 5/325 Mg) 1 tab PO Q6H PRN PRN Reason: PAIN SCALE 3 TO 5 Oxycodone/Acetaminophen (Percocet 10/325 Mg) 1 tab PO Q6H PRN PRN Reason: PAIN SCALE 6 TO 10 Last Admin: 09/18/17 08:13 Dose: 1 tab Senna/Docusate Sodium (Kristin-Colace) 1 tab PO BID CHAN Last Admin: 09/18/17 08:14 Dose: Not Given Sennosides (Senokot) 17.2 mg PO Q12H PRN PRN Reason: Moderate Constipation Allergies Allergy/AdvReac Type Severity Reaction Status Date / Time *MDRO Multi-Drug Resistant AdvReac Unknown Uncoded 07/03/17 19:55 Organism Home Medications Medication Instructions Recorded Confirmed Type lisinopril 40 mg PO BID 09/16/17 09/18/17 History metoprolol tartrate 25 mg PO DAILY 09/16/17 09/18/17 History Exam Vital signs: Vital Signs 09/18/17 03:21 09/18/17 06:47 09/18/17 06:49 Temperature 98.9 F Pulse Rate 87 Respiratory Rate 17 20 20 Blood Pressure 162/81 H Pulse Oximetry 96 09/18/17 07:26 09/18/17 09:54 Temperature Pulse Rate 83 86 Respiratory Rate 16 18 Blood Pressure 173/90 H 162/77 H Pulse Oximetry 92 L 98 Intake & Output 09/17/17 09/18/17 09/18/17 18:59 06:59 18:59 Weight 99.79 kg Narrative: The patient is alert, awake. He is walking, but vVery painful when ammbulating, in no acute distress. Speech is fluent. Cranial nerve examination: pupils to be equal, round and reactive to light. Extra-ocular movements are intact. Facial motor and sensory function are normal and symmetrical. Gross hearing appears intact. Sternocleidomastoid and trapezius muscles are symmetrical. Other cranial nerves are intact. Neck is soft and supple with a good range of motion without pain. Muscle strength is normal in all muscle groups of both upper and lower extremities. Sensory examination is intact to light touch and pin prick in both the upper and lower extremities. Deep tendon reflexes are symmetrical in both upper and lower extremities. There is a bilateral plantar flexion response. Cerebellar examination is unremarkable, without deficits. Lungs are clear Heart regular rhythm is regular rate Skin warm and dry Results - Laboratory Findings CBC and BMP: 09/18/17 04:47 09/18/17 04:47 Abnormal lab findings: Abnormal Labs 09/18/17 09/18/17 09/18/17 04:47 04:47 04:47 WBC 17.3 H RBC 4.33 L Neut % (Auto) 80.3 H [place] % (Auto) 8.4 H Neut # (Auto) 13.9 H [place] # (Auto) 1.4 H ESR 49 H BUN 36 H Estimated GFR 67 L Random Glucose 107 H Calcium 8.2 L Assessment and Plan - Plan I reviewed his radiological studies including Lumbar Spine MRI 09/18/17 05:12 CONCLUSION: 1. No evidence for epidural abscess. 2. Resolution of previously seen abnormal marrow edema of L5-S1 on the left side an epidural abscess at that site since the prior exam. There is mild edema involving the superior articular process of L5 on the left side could be due to degenerative change. 3. Slight nondescript soft tissue edema on the right posteriorly L3-S1 not present on the prior exam possibly traumatic related to spasm or inflammatory change without focal pocket of abscess. Neuro checks every 4 hrs. The marrow signal appears intact except for mild probable degenerative edema involving the superior articular process and lamina of L5 on the left side and the previously seen abnormal marrow edema involving L5 and S1 on the left side has resolved. There is no evidence of epidural abscess and previously seen epidural abscess at the level of L5-S1 has resolved. There is no indication for a surgical intervention at this time. Recommend pain management with analgesics and antiinflammatories. I will defer further follow ups to his neurosurgeon, dr Chaney, who treated him in 2016. Pain management with analgesics and antiinflammatories Recommend to send sedimentation rate and C reactive protein, and if elevated and consider necessary, could send for a CT guided biopsy for tissue diagnosis and cultures. Quick draw corset may be beneficial for symptomatic pain Pulmonary: aggressive pulmonary toilette, nasotracheal suction, and breathing treatments with nebulizers. Daily PT Renal: Continue to monitor closely urine output, BUN and creatinine Endocrine: Continue to Monitor serial Acu checks and SSI as needed in detail ID continue to monitor for signs of infection Continue Protonix for stress ulcer prophylaxis Continue Brant hose and SCD's for DVT prophylaxis Further recommendations will be provided depending on the patient's clinical evaluation and follow up studies.
[2017-09-18 11:14] LABS: Activated Partial Thrombo Time 28.9 sec (24.3-30.1); INR 1.1 Ratio; Prothrombin Time 11.1 sec (9.8-11.6)
[2017-09-18] MEDS: Pantoprazole Sodium 20 MG DR Tablet PO SCH (16:32)
[2017-09-18] MEDS: HYDROmorphone PF Inj 2 MG/ML Vial IV.PUSH PRN ×3 (16:38→22:27)
[2017-09-19] MEDS ORDERED: Ketorolac Inj 30 MG/ML (IVP) Vial IV.PUSH ONE (01:20)
[2017-09-19] MEDS: oxyCODONE/Acetaminophen 10/325 Tablet PO PRN ×3 (02:41→12:20)
[2017-09-19] MEDS: HYDROmorphone PF Inj 2 MG/ML Vial IV.PUSH PRN ×2 (04:53→21:08)
--- NOTE | 2017-09-19 06:22 | P.PN ---
Subjective Interval history: f/u back pain. States current p.o. pain medicines not working. No radiculopathy, incontinence. Physical Exam Vital signs: Vital Signs 09/18/17 06:47 09/18/17 06:49 09/18/17 07:26 Temperature Pulse Rate 83 Respiratory Rate 20 20 16 Blood Pressure 173/90 H Pulse Oximetry 92 L 09/18/17 09:54 09/18/17 12:00 09/18/17 14:00 Temperature 98.5 F Pulse Rate 86 Respiratory Rate 18 18 22 Blood Pressure 162/77 H 185/102 H Pulse Oximetry 98 98 09/18/17 16:00 09/18/17 16:27 09/18/17 17:10 Temperature 98.8 F Pulse Rate 98 H Respiratory Rate 18 20 18 Blood Pressure 200/90 H Pulse Oximetry 98 09/18/17 20:15 09/18/17 22:24 09/18/17 23:30 Temperature 98.2 F Pulse Rate 102 H Respiratory Rate 22 16 20 Blood Pressure 192/105 H Pulse Oximetry 98 09/18/17 23:40 09/18/17 23:42 09/19/17 01:01 Temperature 98.4 F Pulse Rate 214 H 107 H Respiratory Rate 22 22 Blood Pressure 184/128 H 204/128 H 173/84 H Pulse Oximetry 95 09/19/17 01:28 09/19/17 04:54 Temperature 97.1 F L Pulse Rate 91 H Respiratory Rate 20 19 Blood Pressure 189/87 H Pulse Oximetry 96 Intake & Output 09/18/17 09/18/17 09/19/17 06:59 18:59 06:59 Intake Total 2240 / 2240 Output Total 1050 / 1050 Balance 1190 / 1190 Weight 99.79 kg 99.79 kg Intake: IV 1999 / 1999 NS Inj 1,000 ML @ 125 mls/hr IV 1000 / 1000 .CONT .Q8H [facility] Rx#:[id number] Oral 240 / 240 Output: Urine 1050 / 1050 Other: Weight On Admission 99.79 kg Narrative: GENERAL: Well-developed and obese Appears in extreme pain. SKIN: Warm and dry. CARDIOVASCULAR: Regular rate and rhythm. RESPIRATORY: No accessory muscle use. Clear to auscultation. Breath sounds equal bilaterally. GASTROINTESTINAL: Abdomen soft, non-tender, nondistended. MUSCULOSKELETAL: Extremities without clubbing, cyanosis, or edema. No obvious deformities. NEUROLOGICAL: Awake and alert. No obvious cranial nerve deficits. Motor grossly within normal limits. Five out of 5 muscle strength in the arms and legs. Normal speech. Results - Labs CBC & Chem 7: 09/19/17 05:55 09/18/17 04:47 Laboratory Results - last 24 hr 09/18/17 09/18/17 09/18/17 04:47 07:30 10:14 ESR 49 H PT 11.1 INR 1.1 APTT 28.9 Lactic Acid 0.9 C-Reactive Protein 09/18/17 09/18/17 14:53 14:53 ESR 67 H PT INR APTT Lactic Acid C-Reactive Protein 11.00 H - Imaging Impressions Lumbar Spine MRI 09/18/17 05:12 CONCLUSION: 1. No evidence for epidural abscess. 2. Resolution of previously seen abnormal marrow edema of L5-S1 on the left side an epidural abscess at that site since the prior exam. There is mild edema involving the superior articular process of L5 on the left side could be due to degenerative change. 3. Slight nondescript soft tissue edema on the right posteriorly L3-S1 not present on the prior exam possibly traumatic related to spasm or inflammatory change without focal pocket of abscess. Assessment and Plan - Plan //Intractable low back pain //Failure of outpatient treatment = MRI spine with no evidence of epidural abscess. Resolution of previous marrow edema, however mild edema involving superior articular process of L5 on the left side, soft tissue edema L3-S1. = Elevated ESR and CRP = Pain control counseled regarding narcotics. Neurosurgery recommends CT guided biopsy //Leukocytosis. Likely secondary to steroids. No other SIRS criteria. Continue to monitor. //History of atrial fibrillation. Heart rate controlled. Continue metoprolol. Not on anticoagulation. //Hypertension. Blood pressure elevated likely secondary to pain. Continue home medications and monitor. //Tobacco abuse. Cessation counseling provided. DVT proph with SCD
[2017-09-19 06:25] LABS: Baso % (Auto) 0.2 % (0.0-2.0); Hematocrit 46.6 % (39.0-51.0); Hemoglobin 15.8 gm/dL (13.0-17.0); Lymph # (Auto) 1.1 th/mm3 (1.0-4.8); Lymph % (Auto) 4.4 % (9.0-44.0); Mean Corpuscular Hemoglobin 31.2 pg (27.0-34.0); Mean Corpuscular Volume 91.7 fL (80.0-100.0); Mean Platelet Volume 8.7 fL (7.0-11.0); Mono # (Auto) 1.8 th/mm3 (0.0-0.9); Mono % (Auto) 7.1 % (0.0-8.0); Neut # (Auto) 22.6 th/mm3 (1.8-7.7); Neut % (Auto) 88.3 % (16.0-70.0); Platelet Count 189 th/mm3 (150-450); Red Blood Count 5.09 mil/mm3 (4.50-5.90); White Blood Count 25.6 th/mm3 (4.0-11.0)
[2017-09-19] MEDS: Sod Chloride 0.9% Inj 1,000 ML IV.CONT SCH ×2 (07:11)
[2017-09-19] MEDS: Lisinopril 20 MG Tablet PO SCH (08:47)
[2017-09-19] MEDS: Metoprolol Tartrate 25 MG Tablet PO SCH (08:48)
[2017-09-19] MEDS: Pantoprazole Sodium 20 MG DR Tablet PO SCH (08:48)
[2017-09-19] MEDS: Senna/Docusate Sodium 8.6/50 MG Tablet PO SCH (08:49)
[2017-09-19 16:19] LABS: Calcium 8.3 mg/dL (8.5-10.1); Potassium 4.1 meq/L (3.5-5.1)
[2017-09-20] MEDS: HYDROmorphone PF Inj 2 MG/ML Vial IV.PUSH PRN ×5 (00:43→21:24)
[2017-09-20] MEDS ORDERED: Ketorolac Inj 30 MG/ML (IVP) Vial IV.PUSH ONE (01:39)
[2017-09-20] MEDS: Senna/Docusate Sodium 8.6/50 MG Tablet PO SCH ×3 (07:28→21:23)
[2017-09-20] MEDS: oxyCODONE/Acetaminophen 10/325 Tablet PO PRN ×3 (08:24→18:56)
[2017-09-20] MEDS: Lisinopril 20 MG Tablet PO SCH (09:21)
[2017-09-20] MEDS: Pantoprazole Sodium 20 MG DR Tablet PO SCH (09:21)
[2017-09-20] MEDS: Metoprolol Tartrate 25 MG Tablet PO SCH (09:21)
--- NOTE | 2017-09-20 11:15 | P.PN ---
Subjective Interval history: F/u back pain . Improving pain scale of 7 out of 10 on Percocet. Counseled regarding narcotics. Awaiting neurosurgery follow-up and biopsy by IR Physical Exam Vital signs: Vital Signs 09/19/17 11:55 09/19/17 16:00 09/19/17 20:00 Temperature 98.7 F 99.5 F 98.3 F Pulse Rate 75 93 H 74 Respiratory Rate 21 20 16 Blood Pressure 173/82 H 182/93 H 137/80 Pulse Oximetry 99 98 100 09/20/17 00:00 09/20/17 04:00 09/20/17 08:11 Temperature 98.0 F 97.9 F 98.7 F Pulse Rate 70 68 99 H Respiratory Rate 14 14 22 Blood Pressure 120/70 116/57 L 158/74 H Pulse Oximetry 95 96 95 Intake & Output 09/19/17 09/20/17 09/20/17 18:59 06:59 18:59 Intake Total 720 / 720 520 / 520 Output Total 1025 / 1025 Balance 720 / 720 -505 / -505 Intake: Oral 720 / 720 520 / 520 Output: Urine 1025 / 1025 Other: # Voids 5 # Bowel Movements 1 Narrative: GENERAL: Well-developed and obese SKIN: Warm and dry. CARDIOVASCULAR: Regular rate and rhythm. RESPIRATORY: No accessory muscle use. Clear to auscultation. Breath sounds equal bilaterally. GASTROINTESTINAL: Abdomen soft, non-tender, nondistended. MUSCULOSKELETAL: Extremities without clubbing, cyanosis, or edema. No obvious deformities. NEUROLOGICAL: Awake and alert. No obvious cranial nerve deficits. Motor grossly within normal limits. Five out of 5 muscle strength in the arms and legs. Normal speech. Results - Labs CBC & Chem 7: 09/19/17 05:55 09/19/17 13:17 Laboratory Results - last 24 hr 09/19/17 13:17 Sodium 135 L Potassium 4.1 Chloride 102 Carbon Dioxide 25.0 Anion Gap 8 BUN 17 Creatinine 1.11 Estimated GFR 68 L Random Glucose 144 H Calcium 8.3 L Microbiology 09/18/17 07:29 Blood - Peripheral Aerobic Blood Culture - Preliminary No growth in 2 days 09/18/17 07:29 Blood - Peripheral Anaerobic Blood Culture - Preliminary No growth in 2 days 09/18/17 07:29 Blood - Peripheral Aerobic Blood Culture - Preliminary No growth in 2 days 09/18/17 07:29 Blood - Peripheral Anaerobic Blood Culture - Preliminary No growth in 2 days - Imaging ITS Impressions Lumbar Spine MRI 09/18/17 05:12 CONCLUSION: 1. No evidence for epidural abscess. 2. Resolution of previously seen abnormal marrow edema of L5-S1 on the left side an epidural abscess at that site since the prior exam. There is mild edema involving the superior articular process of L5 on the left side could be due to degenerative change. 3. Slight nondescript soft tissue edema on the right posteriorly L3-S1 not present on the prior exam possibly traumatic related to spasm or inflammatory change without focal pocket of abscess. - Procedures none Assessment and Plan - Plan //Intractable low back pain //Failure of outpatient treatment = MRI spine with no evidence of epidural abscess. Resolution of previous marrow edema, however mild edema involving superior articular process of L5 on the left side, soft tissue edema L3-S1. = Elevated ESR and CRP = Pain control counseled regarding narcotics. Neurosurgery recommends CT guided biopsy //Leukocytosis. Likely secondary to steroids. No other SIRS criteria. Continue to monitor. //History of atrial fibrillation. Heart rate controlled. Continue metoprolol. Not on anticoagulation. //Hypertension. Blood pressure elevated likely secondary to pain. Continue home medications and monitor. //Tobacco abuse. Cessation counseling provided. DVT proph with SCD Discharge Planning: Home when cleared by NS, pain controlled with po meds
[2017-09-21] MEDS: oxyCODONE/Acetaminophen 10/325 Tablet PO PRN ×2 (01:50→06:19)
[2017-09-21] MEDS: HYDROmorphone PF Inj 2 MG/ML Vial IV.PUSH PRN ×2 (02:47→08:37)
[2017-09-21 03:49] VITALS: RESP 18
[2017-09-21 07:45] VITALS: BP 155/91; PULSE 69; TEMP 97.9; O2SAT 95
[2017-09-21] MEDS: Senna/Docusate Sodium 8.6/50 MG Tablet PO SCH (08:37)
[2017-09-21] MEDS: Metoprolol Tartrate 25 MG Tablet PO SCH (08:37)
[2017-09-21] MEDS: Lisinopril 20 MG Tablet PO SCH (08:37)
[2017-09-21] MEDS: Pantoprazole Sodium 20 MG DR Tablet PO SCH (08:37)
--- NOTE | 2017-09-21 13:02 | P.PN ---
Subjective Interval history: Follow-up for back pain. Patient is complaining of significant persistent back pain. He is upset that nothing is being done in the hospital. No fever or chills. Physical Exam Vital signs: Vital Signs 09/20/17 16:00 09/20/17 20:00 09/20/17 23:58 Temperature 97.5 F L 98.1 F 98 F Pulse Rate 87 94 H 94 H Respiratory Rate 18 17 17 Blood Pressure 144/70 H 136/73 134/89 Pulse Oximetry 97 95 96 09/21/17 03:48 09/21/17 07:42 Temperature 98.3 F 97.9 F Pulse Rate 83 69 Respiratory Rate 18 18 Blood Pressure 141/75 H 155/91 H Pulse Oximetry 93 L 95 Narrative: GENERAL: Alert, oriented 3, NAD. SKIN: Warm and dry. HEAD: Normocephalic. EYES: No scleral icterus. No injection or drainage. NECK: Supple, trachea midline. No JVD or lymphadenopathy. CARDIOVASCULAR: Regular rate and rhythm without murmurs, gallops, or rubs. RESPIRATORY: Breath sounds equal bilaterally. No accessory muscle use. GASTROINTESTINAL: Abdomen soft, non-tender, nondistended. MUSCULOSKELETAL: No cyanosis, or edema. BACK: Nontender without obvious deformity. No CVA tenderness. Results - Labs CBC & Chem 7: 09/19/17 05:55 09/19/17 13:17 Microbiology 09/18/17 07:29 Blood - Peripheral Aerobic Blood Culture - Preliminary No growth in 3 days 09/18/17 07:29 Blood - Peripheral Anaerobic Blood Culture - Preliminary No growth in 3 days 09/18/17 07:29 Blood - Peripheral Aerobic Blood Culture - Preliminary No growth in 3 days 09/18/17 07:29 Blood - Peripheral Anaerobic Blood Culture - Preliminary No growth in 3 days - Procedures none Assessment and Plan - Plan Mr. Cuevas is a 56-year-old male with a history of a spinal abscess who presented to the emergency department on 09/18/2017 due to sharp, nonradiating low back pain. MRI did not reveal any evidence of spinal abscess. Neurosurgery was consulted. Neurosurgery recommended pain management and conservative management. Intractable low back pain Failure of outpatient treatment MRI spine with no evidence of epidural abscess. Resolution of previous marrow edema, however mild edema involving superior articular process of L5 on the left side, soft tissue edema L3-S1. Elevated ESR and CRP Pain control counseled regarding narcotics. Neurosurgery recommends CT guided biopsy Discussed with neurosurgery on 09/21/2017. Neurosurgery has no further input. Did recommend outpatient pain management. Leukocytosis. Likely secondary to steroids. No other SIRS criteria. Continue to monitor. History of atrial fibrillation. Heart rate controlled. Continue metoprolol. Not on anticoagulation. Hypertension. Blood pressure elevated likely secondary to pain. Continue home medications and monitor. Tobacco abuse. Cessation counseling provided. DVT proph with SCD Patient decided to leave AGAINST MEDICAL ADVICE.
--- NOTE | 2017-09-21 21:31 | P.DS ---
Date of admission: 09/18/17 07:57 Primary care physician: No Primary Care Physician Brief History from admission: 56-year-old male with a history of spinal abscess, staph bacteremia who presents with 3 day history of constant, sharp, nonradiating low back pain worsened by movement. Patient denies any injuries. Denies IV drug use. He says he feels like fevers have started today. He reports the pain is so severe he cannot lie down, and history is limited by what appears to be extreme pain. Patient says he is convinced this is a return of his previous spinal infection DS: Summary Hospital Course: Mr. Cuevas is a 56-year-old male with a history of a spinal abscess who presented to the emergency department on 09/18/2017 due to sharp, nonradiating low back pain. MRI did not reveal any evidence of spinal abscess. Neurosurgery was consulted. Neurosurgery recommended pain management and conservative management. Intractable low back pain Failure of outpatient treatment MRI spine with no evidence of epidural abscess. Resolution of previous marrow edema, however mild edema involving superior articular process of L5 on the left side, soft tissue edema L3-S1. Elevated ESR and CRP Pain control counseled regarding narcotics. Neurosurgery recommends CT guided biopsy Discussed with neurosurgery on 09/21/2017. Neurosurgery has no further input. Did recommend outpatient pain management. Leukocytosis. Likely secondary to steroids. No other SIRS criteria. Continue to monitor. History of atrial fibrillation. Heart rate controlled. Continue metoprolol. Not on anticoagulation. Hypertension. Blood pressure elevated likely secondary to pain. Continue home medications and monitor. Tobacco abuse. Cessation counseling provided. DVT proph with SCD Patient decided to leave AGAINST MEDICAL ADVICE. - Time Spent with Patient Total time spent providing and/or coordinating discharge services: - Quality: VTE Deep Vein Thrombosis/Pulmonary Embolism Present on Admission: No Exam Vital signs: Vital Signs 09/20/17 23:58 09/21/17 03:48 09/21/17 07:42 Temperature 98 F 98.3 F 97.9 F Pulse Rate 94 H 83 69 Respiratory Rate 17 18 18 Blood Pressure 134/89 141/75 H 155/91 H Pulse Oximetry 96 93 L 95 Narrative: GENERAL: Alert, Oriented x 3, NAD. SKIN: Warm and dry. HEAD: Normocephalic. EYES: No scleral icterus. No injection or drainage. NECK: Supple, trachea midline. No JVD or lymphadenopathy. CARDIOVASCULAR: Regular rate and rhythm without murmurs, gallops, or rubs. RESPIRATORY: Breath sounds equal bilaterally. No accessory muscle use. GASTROINTESTINAL: Abdomen soft, non-tender, nondistended. MUSCULOSKELETAL: No cyanosis, or edema. No pain over lower back on palpation. BACK: Nontender without obvious deformity. No CVA tenderness. Results Procedures completed during hospitalization: none Labs on day of discharge: Preliminary micro results at discharge 09/18/17 07:29 Aerobic Blood Culture - Preliminary Blood - Peripheral No growth in 3 days Anaerobic Blood Culture - Preliminary No growth in 3 days 09/18/17 07:29 Aerobic Blood Culture - Preliminary Blood - Peripheral No growth in 3 days Anaerobic Blood Culture - Preliminary No growth in 3 days - Impressions ITS Impressions Lumbar Spine MRI 09/18/17 05:12 CONCLUSION: 1. No evidence for epidural abscess. 2. Resolution of previously seen abnormal marrow edema of L5-S1 on the left side an epidural abscess at that site since the prior exam. There is mild edema involving the superior articular process of L5 on the left side could be due to degenerative change. 3. Slight nondescript soft tissue edema on the right posteriorly L3-S1 not present on the prior exam possibly traumatic related to spasm or inflammatory change without focal pocket of abscess. Discharge Plan - Discharge Disposition Patient Disposition: Left Against Medical Advice - Discharge Condition Condition: Stable - Discharge Order Discharge Orders: AMA Discharge (Routine); Ordered 09/21/17 Ordered By: Alisa Pena - Physicians Team Primary Care Provider: Primary Care Dot,Yahaira Attending Provider: Alisa Pena Other Providers: Darnell Crawford MD
== END 2017-09-21 12:49 | disposition left against medical advice (07) ==
LOC: NEDA 03:19 → NEPFCDU 03:19 → NEPC 03:19 → NEPFCDU 11:02
PROVIDERS: ADMIT Hospitalist; ATTEND Hospitalist
DX: Z16.24 Resistance to multiple antibiotics; I48.91 Unspecified atrial fibrillation; D72.829 Elevated white blood cell count, unspecified; Z79.899 Other long term (current) drug therapy; M54.16 Radiculopathy, lumbar region; I10 Essential (primary) hypertension; J96.90 Respiratory failure, unspecified, unspecified whether with hypoxia or hypercapnia; F17.210 Nicotine dependence, cigarettes, uncomplicated; Z86.61 Personal history of infections of the central nervous system